=== PATIENT | female | born 1980 | race Asian ===

== ENCOUNTER 2017-01-25 12:45 | Outpatient (CLI) | payer BC ==
[~2017-01-25 12:45] MED LIST: AMOX500C85 PO; CETRAXAL0.2 % OT
== END 2017-01-25 19:11 | disposition home or self-care (01) ==
LOC: LABW 12:45
DX: D64.9 Anemia, unspecified (principal)
CPT/HCPCS: 82272

== ENCOUNTER 2018-02-09 21:06 | Outpatient (CLI) | payer OTHER | END 2018-02-09 21:13 | disposition short-term general hospital (02) | LOC: AMB 21:06 | DX: R07.89 Other chest pain (principal); S61.411A Laceration without foreign body of right hand, initial encounter; V49.88XA Car occupant (driver) (passenger) injured in other specified transport accidents, initial encounter; Y92.488 Other paved roadways as the place of occurrence of the external cause | CPT/HCPCS: A0425; A0427 ==

== ENCOUNTER 2018-02-09 21:28 | Emergency (ER) | payer OTHER ==
[~2018-02-09] VITALS: Ht 162.6 cm; Wt 72.6 kg
[2018-02-09 21:16] VITALS: BP 105/69
== END 2018-02-10 00:23 | disposition home or self-care (01) ==
LOC: ED 21:28
DX: T14.8XXA Other injury of unspecified body region, initial encounter (principal); M79.642 Pain in left hand; M79.641 Pain in right hand; V50.0XXA Driver of pick-up truck or van injured in collision with pedestrian or animal in nontraffic accident, initial encounter
CPT/HCPCS: 99283